=== PATIENT | male | born 1945 | race Hispanic/Latino ===

== ENCOUNTER 2018-10-25 14:25 | Outpatient (CLI) | payer OTHER ==
--- NOTE | 2018-10-25 15:12 | RAD ---
LEFT KNEE TWO VIEWS: 10/25/18 HISTORY: Pain in the left knee. FINDINGS: Degenerative changes are seen manifested by osteophytosis and joint space narrowing, most prominent i n the medial tibiofemoral and patellofemoral compartments. No fracture or dislocation or bony destruc tion is seen. No joint effusion is identified. IMPRESSION: Left knee osteoarthritis. POS: [facility]
== END 2018-10-25 14:26 | disposition home or self-care (01) ==
LOC: BICRAD 14:25
PROVIDERS: ATTEND Internal Medicine
DX: M25.562 Pain in left knee (principal); M17.12 Unilateral primary osteoarthritis, left knee